=== PATIENT | female | born 1990 | race African-American/Black ===

== ENCOUNTER 2019-07-06 11:58 | Emergency (ER) | payer SELFPAY ==
[2019-07-06 12:21] VITALS: BP 146/81
[2019-07-06] MEDS ORDERED: KETOROLAC TROMETHAMINE 60 MG/2 ML SDV IM ONE (12:30)
[2019-07-06] MEDS ORDERED: PENICILLIN V POTASSIUM 500 MG TABLET PO ONE (12:30)
--- NOTE | 2019-07-06 12:33 | ER Document Report ---
ED General - General Chief Complaint: Mouth Problem Stated Complaint: LEFT SIDE MOUTH PAIN Time Seen by Provider: 07/06/19 12:22 - HPI Patient complains to provider of: dental pain Notes: 29 y/o presenting to ED for evaluation of left side dental pain no fever or facial swelling no difficulty speaking or swallowing she knows she has a bad tooth but has not had tooth extracted due to financial limitations her pain is a throbbing pulsing pain ongoing for 2-3 days - Related Data Allergies/Adverse Reactions: acetaminophen Allergy (Verified 07/06/19 12:14) Past Medical History - Social History Smoking Status: Current Some Day Smoker Frequency of alcohol use: Occasional Drug Abuse: None Family History: Reviewed & Not Pertinent Patient has suicidal ideation: No Patient has homicidal ideation: No Review of Systems - Review of Systems Constitutional: No symptoms reported EENT: Dental problem Cardiovascular: No symptoms reported Respiratory: No symptoms reported Gastrointestinal: No symptoms reported Genitourinary: No symptoms reported Female Genitourinary: No symptoms reported Musculoskeletal: No symptoms reported Skin: No symptoms reported Hematologic/Lymphatic: No symptoms reported Neurological/Psychological: No symptoms reported Physical Exam - Vital signs Vitals: Temp Pulse Resp BP Pulse Ox 98.0 F 85 16 154/101 H 97 07/06/19 12:05 07/06/19 12:05 07/06/19 12:05 07/06/19 12:05 07/06/19 12:05 Interpretation: Normal - General General appearance: Appears well, Alert - HEENT Head: Normocephalic, Atraumatic Eyes: Normal Pupils: PERRL Teeth diagram: 1 - impacted fractured tooth with gumline erythema - Respiratory Respiratory status: No respiratory distress Chest status: Nontender Breath sounds: Normal Chest palpation: Normal - Cardiovascular Rhythm: Regular Heart sounds: Normal auscultation Murmur: No - Abdominal Inspection: Normal Distension: No distension Bowel sounds: Normal Tenderness: Nontender Organomegaly: No organomegaly - Back Back: Normal, Nontender - Extremities General upper extremity: Normal inspection, Nontender, Normal color, Normal ROM, Normal temperature General lower extremity: Normal inspection, Nontender, Normal color, Normal ROM, Normal temperature, Normal weight bearing. No: Manjinder's sign - Neurological Neuro grossly intact: Yes Cognition: Normal Orientation: AAOx4 [place] Coma Scale Eye Opening: Spontaneous [place] Coma Scale Verbal: Oriented [place] Coma Scale Motor: Obeys Commands [place] Coma Scale Total: 15 Speech: Normal Motor strength normal: LUE, RUE, LLE, RLE Sensory: Normal - Psychological Associated symptoms: Normal affect, Normal mood - Skin Skin Temperature: Warm Skin Moisture: Dry Skin Color: Normal Course - Re-evaluation Re-evalutation: 07/06/19 12:38 dental pain likely from abscess penicillin rx dental follow up emphasized - Vital Signs Vital signs: Temp Pulse Resp BP Pulse Ox 98.0 F 85 16 146/81 H 97 07/06/19 12:05 07/06/19 12:05 07/06/19 12:05 07/06/19 12:21 07/06/19 12:05 Discharge - Discharge Clinical Impression: Dental abscess, Elevated blood pressure reading Condition: Stable Disposition: HOME, SELF-CARE Instructions: Dental Infection or Abscess ([facility]), Dentist Additional Instructions: please follow up with a dentist return to ED with worsening take antibiotic as directed Prescriptions: Penicillin V Potassium [Penicillin Vk 500 mg Tablet] 500 mg PO BID #20 tablet
== END 2019-07-06 12:47 | disposition home or self-care (01) ==
LOC: ER 11:58
DX: K04.7 Periapical abscess without sinus (principal); R03.0 Elevated blood-pressure reading, without diagnosis of hypertension; F17.200 Nicotine dependence, unspecified, uncomplicated
CPT/HCPCS: 99282; 96372; J1885